=== PATIENT | male | born 1960 | race Caucasian/White ===

== ENCOUNTER 2022-09-20 08:08 | Outpatient (CLI) | payer BC ==
[2022-09-20 09:00] LABS: Anion Gap 14 mmol/L (10-20); BUN (Urea Nitrogen) 12 mg/dL (8.4-25.7); Calc. Creatinine Clearance 0 mL/min (70-130); Calcium 9.9 mg/dL (7.8-10.44); Carbon Dioxide 28 mmol/L (23-31); Chloride 101 mmol/L (98-107); Estimated GFR 80; Glucose 144 mg/dL (80-115); Potassium 4.8 mmol/L (3.5-5.1); Sodium 138 mmol/L (136-145)
== END 2022-09-20 08:09 | disposition home or self-care (01) ==
LOC: CSHLAB 08:08
PROVIDERS: ATTEND Otolaryngology Otolaryngic Allergy
DX: Z01.818 Encounter for other preprocedural examination (principal); C06.9 Malignant neoplasm of mouth, unspecified
CPT/HCPCS: 80048; 93005; 93010

== ENCOUNTER 2022-09-25 07:54 | Day surgery (SDC) | payer BC ==
[2022-09-24 09:32] VITALS: BMI 25.7
[2022-09-25] MEDS ORDERED: Acetaminophen 500 MG TAB ONE (09:32)
[2022-09-25] MEDS ORDERED: Midazolam HCl 2 mg/2 ml Vial ONE (10:04)
[2022-09-25] MEDS ORDERED: PROPOFOL 20 ML ONE (10:04)
[2022-09-25] MEDS ORDERED: Fentanyl 100 MCG/2 ML VIAL ONE (10:04)
[2022-09-25] MEDS ORDERED: Ondansetron PF 4 MG/2 ML Vial ONE (10:05)
[2022-09-25] MEDS ORDERED: Dexamethasone 20 MG/5 ML VIAL ONE (10:05)
[2022-09-25] MEDS ORDERED: EPINEPHrine 1 MG/ML AMP ONE (10:06)
[2022-09-25] MEDS ORDERED: Ketamine 50 MG/ML (10ML VIAL) ONE (10:22)
[2022-09-25] MEDS ORDERED: Propofol 1,000 MG/100 ML VIAL IV ONE (10:22)
[2022-09-25] MEDS ORDERED: Labetalol HCl 100 MG/20 ML VIAL ONE (12:52)
[2022-09-25] MEDS ORDERED: Lidocaine 1% w/Epinephrine 1:100K 30 ML VIAL ONE (12:56)
[2022-09-25] MEDS ORDERED: Lidocaine 1% w/Epinephrine 1:200K 30 ML VIAL ONE (12:56)
== END 2022-09-25 14:55 | disposition home or self-care (01) ==
LOC: CSHSDC 07:54
PROVIDERS: ATTEND Otolaryngology Otolaryngic Allergy
PROC: 0WB30ZZ Excision of Oral Cavity and Throat, Open Approach (ICD-10-PCS; principal; 2022-09-25)
PROC: 0C5 Mouth and Throat, Destruction (ICD-10-PCS; principal; 2022-09-25)
PROC: 0CJS8ZZ Inspection of Larynx, Via Natural or Artificial Opening Endoscopic (ICD-10-PCS; principal; 2022-09-25)
DX: C06.9 Malignant neoplasm of mouth, unspecified (principal); I10 Essential (primary) hypertension; Z87.891 Personal history of nicotine dependence; Z79.899 Other long term (current) drug therapy
CPT/HCPCS: 88305; J0171; J1100; J2250; J2405; J2704; J3010